=== PATIENT | female | born 1970 | race Caucasian/White ===

== ENCOUNTER → 2019-09-11 | Outpatient (CLI) | payer BC ==
[2019-09-11 13:42] LABS: Basophils % (A) 1 %; Eosinophils % (A) 1 %; HCT 40.4 % (34.0-46.0); HGB 13.3 gm/dL (11.4-16.0); Lymphocytes # (A) 1.6 k/uL (1.0-4.8); Lymphocytes % (A) 23 %; MCH 30.5 pg (25.0-35.0); MCHC 32.8 g/dL (31.0-37.0); MCV 92.8 fL (80.0-100.0); Mean Platelet Volume 6.3; Monocytes # (A) 0.4 k/uL (0-1.0); Monocytes % (A) 5 %; Neutrophils % (A) 70 %; Platelet Count 274 k/uL (150-450); RBC 4.35 m/uL (3.80-5.40); RDW 12.5 % (11.5-15.5); WBC 7.1 k/uL (3.8-10.6)
[2019-09-11 14:18] LABS: Appearance,Urine Cloudy (Clear); Bacteria,Urine Occasional /hpf; Bilirubin,Urine Negative (Negative); Blood,Urine Negative (Negative); Color,Urine Yellow; Glucose,Urine (UA) Negative (Negative); Ketones,Urine Negative (Negative); Leukocyte Esterase,Urine Negative (Negative); Mucus,Urine Occasional /hpf; Nitrite,Urine Negative (Negative); Protein,Urine Negative (Negative); RBC,Urine 2 /hpf (0-5); Specific Gravity,Urine 1.015 (1.001-1.035); Squamous Epithelial Cell,Urine 19 /hpf (0-4); Urobilinogen,Urine <2.0 mg/dL (<2.0); WBC,Urine 1 /hpf (0-5)
[2019-09-11 19:24] LABS: Erythrocyte Sedimentation Rate 2 mm/hr (0-20)
[2019-09-11 20:55] LABS: Immunoglobulin E 71.5 IU/mL (0.00-114.00)
[2019-09-12 12:56] LABS: Immunoglobulin A 97.5 mg/dL (60.0-350.0)
== END | disposition home or self-care (01) ==
LOC: LABWHC1 12:38
PROVIDERS: ATTEND Allergy & Immunology
DX: J30.1 Allergic rhinitis due to pollen (principal); N30.90 Cystitis, unspecified without hematuria; R39.89 Other symptoms and signs involving the genitourinary system
CPT/HCPCS: 36415; 81001; 82784; 82785; 85025; 85652

== ENCOUNTER 2019-11-06 09:24 | Day surgery (SDC) | payer BC ==
[2019-11-04 15:48] VITALS: BMI 23.8
[~2019-11-06 09:24] MED LIST: LACTATED RINGERS 1,000 ML IV SCH; LIDOCAINE 1% 20 ML VIAL (10MG/ML) FOR IV START INTRADERMA PRN
[2019-11-06 09:48] VITALS: RESP 16; TEMP 97.5
[2019-11-06] MEDS ORDERED: PROPOFOL 10 MG/ML 20 ML VIAL IV ONE (10:16)
--- NOTE | 2019-11-06 10:38 | P.PCN ---
Date of Procedure: 11/06/19 Procedure(s) Performed: BRIEF HISTORY: Patient is a 49-year-old pleasant female scheduled for an elective colonoscopy as a part of screening for colorectal neoplasia. PROCEDURE PERFORMED: Colonoscopy. PREOPERATIVE DIAGNOSIS: Screening for colon cancer. IV sedation per Anesthesia. PROCEDURE: After informed consent was obtained, the patient, was brought into the endoscopy unit. IV sedation was administered by Anesthesia under continuous monitoring. Digital rectal examination was normal. Initially the Olympus CF-160 flexible video colonoscope was then inserted in the rectum, gradually advanced into the cecum without any difficulty. Careful examination was performed as the scope was gradually being withdrawn. Ileocecal valve and the appendiceal orifice were visualized and appeared normal. Prep was excellent. Mucosa of the cecum, ascending colon, transverse colon, descending colon, sigmoid colon, and rectum appeared normal. Retroflexion was performed in the rectum and no lesions were seen. The patient tolerated the procedure well. IMPRESSION: Normal-appearing colon from rectum to cecum with no evidence of colorectal neoplasia . RECOMMENDATIONS: Findings of this examination were discussed with the patient as well as her family. She was advised to have a repeat screening colonoscopy in 10 years.
[2019-11-06 10:51] VITALS: BP 108/63; PULSE 51
== END 2019-11-06 11:22 | disposition home or self-care (01) ==
LOC: ORWHC2ENDO 09:24
PROVIDERS: ATTEND Internal Medicine Gastroenterology
DX: Z12.11 Encounter for screening for malignant neoplasm of colon (principal); G43.909 Migraine, unspecified, not intractable, without status migrainosus; M19.90 Unspecified osteoarthritis, unspecified site; L30.9 Dermatitis, unspecified; Z91.09 Other allergy status, other than to drugs and biological substances; Z91.048 Other nonmedicinal substance allergy status; Z91.013 Allergy to seafood; Z91.018 Allergy to other foods; Z79.899 Other long term (current) drug therapy; Z87.898 Personal history of other specified conditions; Z84.89 Family history of other specified conditions
CPT/HCPCS: 81025; J2704; G0121

== ENCOUNTER → 2019-12-24 | Outpatient (CLI) | payer BC ==
[2019-12-25 07:40] LABS: Gliadin AB IgA, Deaminated NEGATIVE (NEGATIVE); Gliadin AB IgA, Unit <0.2 U/mL; Gliadin AB IgG, Deaminated NEGATIVE (NEGATIVE)
== END | disposition home or self-care (01) ==
LOC: LABWHC1 14:24
PROVIDERS: ATTEND Allergy & Immunology
DX: R10.30 Lower abdominal pain, unspecified (principal)
CPT/HCPCS: 36415; 83516

== ENCOUNTER → 2020-07-21 | Outpatient (CLI) | payer BC | END | disposition home or self-care (01) | LOC: LABWHC1 12:42 | PROVIDERS: ATTEND Family Medicine | DX: Z20.828 Contact with and (suspected) exposure to other viral communicable diseases (principal) | CPT/HCPCS: U0003; C9803 ==

== ENCOUNTER → 2020-08-11 | Outpatient (CLI) | payer BC | END | disposition home or self-care (01) | LOC: LABWHC1 13:56 | PROVIDERS: ATTEND Internal Medicine Rheumatology | DX: L40.59 Other psoriatic arthropathy (principal) | CPT/HCPCS: 36415; 86480 ==

== ENCOUNTER → 2023-02-21 | Outpatient (CLI) | payer BC | END | disposition home or self-care (01) | LOC: LABWHC1 09:29 | PROVIDERS: ATTEND Ophthalmology | DX: H16.223 Keratoconjunctivitis sicca, not specified as Sjogren's, bilateral (principal); H04.129 Dry eye syndrome of unspecified lacrimal gland | CPT/HCPCS: 36415 ==